=== PATIENT | female | born 1965 | race Caucasian/White ===

== ENCOUNTER → 2017-09-28 | Day surgery (SDC) | payer BC ==
[~2017-09-28] VITALS: Ht 160 cm; Wt 59.0 kg
[~2017-09-28] MED LIST: ACETAMINOPHEN/HYDROcodone 325 MG/7.5 MG TAB ONE; ALPR0.5T3 PO; AMPICILLIN/SULBAC 3 GM/NS 100 ML IV SCH; BACITRACIN TOP OINT 15 GM TUBE ONE; CARV25TA PO; CHLORHEXIDINE GLUCONATE 2 % 1 PACK (2 CLOTHS) TOPICAL PRN; CYAN1TAB24 PO; HYDR-3580 PO; INSULIN HUMAN REGULAR 1,000 UNITS/10 ML VIAL SQ PRN; LACTATED RINGER'S 1000 ML IV PRN; LIDOCAINE 1%/EPINEPHrine 1:100,000 SOLN 30 ML VIAL ONE; LOSA25TA PO; MELA1TAB18 PO; METOPROLOL TARTRATE 25 MG TAB PO PRN; MIDAZOLAM HCL 2 MG/2 ML VIAL ONE; MOME17I EACH NARE; MUPIROCIN 2% OINT 22 GM TUBE ONE; OXYMETAZOLINE HCL 0.05% 15 ML NASAL SPRAY ONE; POVIDONE IODINE 5% (ANTISEPSIS KIT) 4 APPLICATIONS EACH NARE PRN; SODIUM CHLORID 0.9% 500 ML IV PRN; SPIR25 PO; TOBRAMYCIN/DEXAMETHASONE OPTH OINT 3.5 GM TUBE ONE; WELLTAB39 PO; [UNRECOGNIZED DRUG - CODE] T-DERMAL; fentaNYL CITRATE 250 MCG/5 ML AMP ONE
[2017-09-28 09:27] VITALS: PULSE 70
[2017-09-28 10:00] VITALS: TEMP 97.5
[2017-09-28 10:40] VITALS: BP 118/72; PULSE 76; RESP 14; O2SAT 97
--- NOTE | 2017-09-28 16:59 | EKG ---
Date Performed: 09/28/2017 Time Performed: 06:59:33 PTAGE: 51 years EKG: Sinus rhythm LOW QRS VOLTAGE IN PRECORDIAL LEADS INCOMPLETE RIGHT BUNDLE BRANCH BLOCK BORDERLINE ECG PREVIOUS TRACING : 12/29/2015 00.40 Since the previous tracing, no significant change noted DOCTOR: Brenton Mesa Interpretating Date/Time 09/28/2017 16:57:16
--- NOTE | 2017-10-03 13:07 | MP ---
cc: Artemio Galo MD DATE OF OPERATION: 09/28/2017 DATE OF OPERATION: 09/28/2017. SURGEON: Dr. Artemio Galo MD PREOPERATIVE DIAGNOSES: 1. Nasal airway obstruction. 2. Bilateral anterior nasal stenosis. 3. Nasal septal deviation. 4. Hypertrophied inferior turbinates. POSTOPERATIVE DIAGNOSES: 1. Nasal airway obstruction. 2. Bilateral anterior nasal stenosis. 3. Nasal septal deviation. 4. Hypertrophied inferior turbinates. OPERATION PERFORMED: 1. Open repair of bilateral anterior nasal stenosis. 2. Open repair, nasal septal fracture. 3. Bilateral submucosal resection of inferior turbinates. INDICATIONS: Documented in history and physical. DETAILS OF PROCEDURE: The patient was taken to OR #2 and placed in the supine position. Following induction of general anesthesia and intubation, the nose is packed bilaterally with cotton pledgets saturated in 0.05% oxymetazoline. These remained in place while the nose was injected into the columella, the nasal tip and dorsum, nasal vestibules, as well as septal mucosa and inferior turbinates with a total of 14 mL of 1% Xylocaine with epinephrine 1:100,000. She was then prepped and draped for surgery. A W-plasty incision was made on the inferior surface of the columella. This was extended down into the soft tissue using sharp dissection down to the inferior borders of the medial crura of the lower lateral cartilages. The incision was then extended within the nasal vestibule following along the inferior borders of these cartilages, allowing the skin to be elevated from the columella, the nasal tip and the nasal dorsum. Dissection continued superiorly and laterally until the cartilaginous nasal skeleton was exposed. Sharp dissection continued between the medial crura of lower lateral cartilages veering toward the left side where the anterior end of the quadrangular cartilage was displaced into the left nasal vestibule. When the antrum was encountered, the soft tissue was elevated from the quadrangular cartilage on both sides using sharp and Rene elevator dissection. This was carried back as far as the junction of the bony and cartilaginous septum. This gave an end on view of the quadrangular cartilage, which showed evidence of old long healed fracture. It was sharply displaced to the left anteriorly along the angulated line of fracture approximately 1 cm posterior to the anterior nasal spine. Posterior to this point, it was deviated over toward the right. The entire anterior end was mobilized and then a cumulative area of 2 x 2 cm was removed, preserving 1.5 cm dorsal and caudal cartilaginous struts. This allowed the anterior end to return easily to the midline. Next, the mucosa was elevated from the bony septum and the maxillary crest and these bones were then removed using [place] forceps on the septum and a 6 mm Nolan chisel on the maxillary crest. This was completed, preserving the anterior nasal spine. When this was completed, the anterior cartilaginous strut was then sewn down to the soft tissue investing the anterior nasal spine in the midline using a single suture of 5-0 clear nylon. Reconstruction of the columella was then completed incorporating a 3 x 15 mm segment of the quadrangular cartilage held in place with interrupted sutures of 5-0 clear nylon between the medial crura. There were several areas of breakage in the medial crura just below the domes into the mid point of the domes. These were repaired using this same suture with a horizontal mattress technique at each site of cartilaginous separation. When this was completed, the inferior turbinates were addressed. They were fractured out medially and stab incision was opened along their inferior surfaces. Through these incisions, the submucosal soft tissue was reduced using a curette and preserving the conchal bone. The incisions were then cauterized using suction Bovie at 35 villalba and the remnants of the inferior turbinates were then relateralized to the lateral nasal wall. When this was completed, the skin was then redraped over the nasal tip and the W-plasty incision was closed using interrupted sutures of 5-0 fast-absorbing plain gut. Additional sutures were placed into the medial wall of the nasal vestibules bilaterally. The nose was then packed with Merocel tampons coated in bacitracin ointment and the procedure was terminated. The patient was reversed from anesthesia and taken to recovery in good condition. There were no complications. Blood loss was 80 mL. MD RICK Kaplan/KEZIA , 11:24 AM , 01:04 PM
== END | disposition home or self-care (01) ==
LOC: PHSDC 06:11
PROVIDERS: ATTEND Otolaryngology
DX: J34.2 Deviated nasal septum (principal); J34.3 Hypertrophy of nasal turbinates; I10 Essential (primary) hypertension
CPT/HCPCS: 00160; 21336; 30140; 30465; 93005; J0295; J2250; J3010; J7120